=== PATIENT | male | born 1940 | race Caucasian/White ===

== ENCOUNTER → 2016-03-05 | Outpatient (CLI) | payer OTHER | LOC: FCPNEURO 22:33 | PROVIDERS: ATTEND Psychiatry & Neurology Sleep Medicine | DX: G47.33 Obstructive sleep apnea (adult) (pediatric) (principal) ==

== ENCOUNTER 2017-07-11 17:32 | Emergency (ER) | payer OTHER ==
--- NOTE | 2017-07-11 17:44 | EDPHY ---
H & P Stated Complaint: DOG BITE 4TH/5TH DIGITS L HAND/PT HAS BEEN IN CONTACT WITH POLICE Time Seen by Provider: 07/11/17 17:43 HPI/ROS: HPI: This is a 68-year-old male who presents with Chief Complaint: DOG BITE 4TH/5TH DIGITS L HAND/PT HAS BEEN IN CONTACT WITH POLICE Location: Left 4th and 5th digit Quality: Dog bite Duration: 5 hr prior to arrival Signs and Symptoms: No bleeding, no radiation, no numbness, no weakness, no tingling, no incontinence, + decreased range of motion, + swelling, + pain, no fever Timing: Acute Severity: Moderate Context: Patient lives in [place], left hand dominant, presents with complaints of a Pitbull from his tenant biting him in the left 5th digit primarily and superficial abrasion on the 4th digit. Patient reports that he felt immediate pain. Pain is worsened with ranges of motion. Reports his tetanus is up-to-date. Police were notified immediately and went to the house. While in the emergency room, patient received a phone call from the police booking officer who reported that the dog is quarantined. Tenant informed landlord that dog was unvaccinated. Denies paresthesias/numbness/skin color changes. Patient reports mild decreased range of motion of flexion extension at the PIP joint. Patient drove down to the emergency room immediately after the injury for further evaluation. 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 CONSTITUTIONAL: Extremely pleasant elderly white male, awake and alert, no obvious distress HEENT: Atraumatic and normocephalic, PERRL, EOMI. Nares patent. Oropharynx clear. Airway patent. No lymphadenopathy. EXTREMITIES: 2/2 pulses, strength 5/5, left hand 5th digit shows a pinpoint puncture site on medial aspect superior to PIP joint; mild tenderness with palpation. left 4th digit shows small pinpoint superficial abrasion lateral aspect between PIP and DIP joints. no tenderness with palpation. Flexion extension have good range of motion. Good light touch sensation. no deformities , no clubbing, no cyanosis or edema. NEUROLOGICAL: Alert and oriented x4. Speech clear. SKIN: Warm and dry, no rash. Good capillary refill. 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, BILAT KNEE REPLACEMENT, LYMPHOMA - Social History Smoking Status: Never smoked Constitutional: Initial Vital Signs Temperature (C) 36.6 C 07/11/17 17:36 Heart Rate 65 07/11/17 17:36 Respiratory Rate 18 07/11/17 17:36 Blood Pressure 118/75 07/11/17 17:36 O2 Sat (%) 93 07/11/17 17:36 O2 Delivery Mode Room Air Allergies/Adverse Reactions: No Known Allergies Allergy (Verified 07/11/17 17:35) Home Medications: Medication Instructions Recorded Aspirin EC [Aspirin EC 325 mg (*)] 81 mg PO HS 12/30/14 Atorvastatin Calcium [Lipitor] 40 mg PO HS 12/30/14 Lisinopril [Zestril 10 mg (*)] 10 mg PO HS 12/30/14 Cholecalciferol Vit D3 [Vitamin D3 2,000 units PO DAILY 01/30/16 (*)] Multivitamins [Multivitamin (*)] 1 each PO DAILY 01/30/16 Amoxicillin/Clavulanate Pot 875 mg PO BID #14 tab 07/11/17 [Augmentin 875 MG TAB (*)] Medical Decision Making ED Course/Re-evaluation: LET topical applied. Copiously irrigated and cleaned. Xeroform and clean sterile dressing applied. Given Augmentin and prescription for same. Tetanus up-to-date. Police have been notified and have quarantined the dog. There is no indication for rabies immunoglobulin at this time. No signs of neurovascular compromise/tenting of skin/compartment syndrome/ extremities and joints examined above and below area of concern and are neurovascularly intact/foreign body. This patient was seen under the supervision of my secondary supervising physician. I evaluated care for this patient independently. Differential Diagnosis: Differential diagnosis includes but is not limited to puncture wound, abrasion, tenosynovitis, tendon injury, nerve injury. Departure - Departure Disposition: Home, Routine, Self-Care Clinical Impression: Dog bite of multiple sites of left hand and fingers Qualifiers: Encounter type: initial encounter Qualified Code(s): S61.452A - Open bite of left hand, initial encounter; S61.259A - Open bite of unspecified finger without damage to nail, initial encounter; S61.259A - Open bite of unspecified finger without damage to nail, initial encounter; W54.0XXA - Bitten by dog, initial encounter; W54.0XXA - Bitten by dog, initial encounter Condition: Good Instructions: Animal Bite (ED) Additional Instructions: Keep the dressing dry and in place for 48 hours. After 48 hours, you may remove the dressing; wash the site daily with mild soap and water; then pat dry. Apply topical antibiotic ointment and keep covered until fully healed. Take Tylenol 650 mg every 4 hours and/or Ibuprofen 600 mg every 8 hours with food as needed for pain. Take Augmentin twice daily for the next 7 days. Return to the ER immediately if you experience redness, red streaks, have fevers /chills, flu like symptoms, limited range of motion, or any other symptoms that concern you. Referrals: PCP Not In,Dictionary [Medical Doctor] - As per Instructions Prescriptions: Amoxicillin/Clavulanate Pot [Augmentin 875 MG TAB (*)] 875 mg PO BID #14 tab
[2017-07-11] MEDS ORDERED: LET GEL TOPICAL 1 EA SYR TP ONE (18:00)
[2017-07-11] MEDS ORDERED: AMOXICILLIN/CLAVULANATE POT 875/125 MG TAB PO ONE (18:00)
[2017-07-11 18:54] VITALS: BP 124/82
== END 2017-07-11 18:54 | disposition home or self-care (01) ==
DX: S61.217A Laceration without foreign body of left little finger without damage to nail, initial encounter (principal); Z79.82 Long term (current) use of aspirin; Z95.5 Presence of coronary angioplasty implant and graft; W54.0XXA Bitten by dog, initial encounter; Y92.009 Unspecified place in unspecified non-institutional (private) residence as the place of occurrence of the external cause

== ENCOUNTER → 2018-04-26 | Outpatient (CLI) | payer OTHER ==
[~2018-04-26] MED LIST: IOPAMIDOL (ISOVUE-300) 100 ML BTL ONE
== END ==
LOC: FIMAGING 09:11
PROVIDERS: ATTEND Urology
DX: C61 Malignant neoplasm of prostate (principal); R59.0 Localized enlarged lymph nodes
CPT/HCPCS: 74177; Q9967; 82565-PO

== ENCOUNTER → 2018-04-28 | Outpatient (CLI) | payer OTHER | LOC: FIMAGING 09:07 | PROVIDERS: ATTEND Urology | DX: C61 Malignant neoplasm of prostate (principal) | CPT/HCPCS: 78306; A9503 ==